=== PATIENT | female | born 1990 | race Caucasian/White ===

== ENCOUNTER 2018-12-18 12:29 | Outpatient (CLI) | payer OTHER | END 2018-12-18 23:59 | disposition home or self-care (01) | LOC: LAB.R 12:29 | PROVIDERS: ATTEND Nurse Practitioner Obstetrics & Gynecology | DX: A56.02 Chlamydial vulvovaginitis (principal) | CPT/HCPCS: 87491; 87591 ==

== ENCOUNTER 2019-01-06 11:02 | Outpatient (CLI) | payer OTHER ==
[2019-01-06 11:09] LABS: MUDS CUTOFF CONCENTRATIONS CUTOFF CONC BELOW:
[2019-01-06 11:31] LABS: AMPHETAMINE SCREEN,URINE NEGATIVE (NEGATIVE); BENZODIAZEPINES SCREEN, URINE NEGATIVE (NEGATIVE); COCAINE SCREEN URINE NEGATIVE (NEGATIVE); METHADONE SCREEN, URINE NEGATIVE (NEGATIVE); METHAMPHETAMINES SCREEN, URINE NEGATIVE (NEGATIVE); OPIATE SCREEN, URINE NEGATIVE (NEGATIVE); OXYCODONE SCREEN, URINE NEGATIVE (NEGATIVE); PROPOXYPHENE SCREEN, URINE NEGATIVE (NEGATIVE); TRICYCLIC ANTIDEPRESSANT,URINE NEGATIVE (NEGATIVE)
[2019-01-06 12:29] LABS: HGB - HEMOGLOBIN 11.7 g/dL (12.0-16.0); MEAN CORPUSCULAR HEMOGLOBIN 28.3 pg (27.0-31.0); MEAN CORPUSCULAR HGB CONC 33.3 g/dL (32.0-36.0); MEAN CORPUSCULAR VOLUME 84.8 fL (81.0-99.0); MEAN PLATELET VOLUME 8.3 fL (7.9-10.8); RED BLOOD COUNT 4.14 10^6/uL (4.20-5.40); RED CELL DISTRIBUTION WIDTH 13.9 % (12.0-15.0); WHITE BLOOD COUNT 9.2 x10^3/uL (4.8-10.8)
== END 2019-01-06 11:03 | disposition home or self-care (01) ==
LOC: LAB 11:02
PROVIDERS: ATTEND Nurse Practitioner Obstetrics & Gynecology
DX: Z34.90 Encounter for supervision of normal pregnancy, unspecified, unspecified trimester (principal); Z36.89 Encounter for other specified antenatal screening
CPT/HCPCS: 36415; 80306; 82950; 85027; 86850

== ENCOUNTER 2019-02-02 11:43 | Outpatient (CLI) | payer OTHER ==
--- NOTE | 2019-02-02 14:25 | Ultrasound Report ---
Reason: UTERINCE SIZE DATE DISCREPANCY, ANTEPARTUM, UNSPEC Procedure Date: 02/02/2019 Accession Number: [id number] / [id number] Procedure: US - OB F/U or Repeat CPT Code: FULL RESULT: EXAM: FOLLOW-UP OBSTETRICAL ULTRASOUND EXAM DATE: 02/02/2019 11:46 AM. CLINICAL HISTORY: Uterine size date discrepancy, antepartum, unspecified. COMPARISON: None. TECHNIQUE: Real-time sonographic evaluation of the fetus performed by the hot dog vendor. Multiple passenger representative static images were saved for review. DATING: Established EGA 32 weeks 3 days with DOLORES 03/27/2019 based on physician assigned dating. EGA 32 weeks 1 day with DOLORES 03/29/2019 based on the current ultrasound. GENERAL EVALUATION Patel . Cardiac activity: 150 bpm. movement: Visualized. Presentation: Variable Placenta: Anterior position. No previa. Amniotic fluid: Mild polyhydramnios ZENON 24.8 cm. MVP 8.5 cm. BIOMETRY Bi-Parietal Diameter (BPD): 7.9 cm, 31 weeks 4 days Head Circumference (HC): 30.4 cm, 33 weeks 5 days Abdominal Circumference (AC): 29.7 cm, 33 weeks 1 day Femur Length (FL): 5.5 cm, 29 weeks 1 day Estimated Weight: 1925 g, 33 percentile for 32 weeks 3 days. ANATOMY Not formally assessed; no abnormalities to visualized structures. MATERNAL STRUCTURES Cervix long and closed 4.4 cm in length. IMPRESSION: 1. Patel live intrauterine with gestational age 32 weeks 3 days based on physician assigned dating. 2. Estimated weight is within expected limits for assigned dating. 3. Mild polyhydramnios of uncertain etiology. Amniotic fluid index 24.8 cm/MVP 8.5 cm. Consider short interval followup to reassess fluid volume and growth. 4. Anterior placenta. No previa. RADIA
== END 2019-02-02 11:44 | disposition home or self-care (01) ==
LOC: DI 11:43
PROVIDERS: ATTEND Nurse Practitioner Obstetrics & Gynecology
DX: O26.849 Uterine size-date discrepancy, unspecified trimester (principal); O40.3XX0 Polyhydramnios, third trimester, not applicable or unspecified; Z3A.32 32 weeks gestation of pregnancy
CPT/HCPCS: 76816

== ENCOUNTER 2019-02-10 17:06 | Outpatient (CLI) | payer OTHER ==
--- NOTE | 2019-02-10 18:15 | Ultrasound Report ---
REVISED: THIS REPORT WAS ORIGINALLY SIGNED ON 02/10/2019 @ 18:17. EXAM CODE REVISED ON 02/19/2019. Reason: POLYHYDRAMNIOS,ANTEPARTUM Procedure Date: 02/10/2019 Accession Number: [id number] / [id number] Procedure: US - OB Bio w/Non Stress CPT Code: FULL RESULT: EXAM: BIOPHYSICAL PROFILE EXAM DATE: 02/10/2019 05:20 PM. CLINICAL HISTORY: POLYHYDRAMNIOS,ANTEPARTUM. COMPARISON: None. TECHNIQUE: Real-time sonographic evaluation of the fetus performed by the elevator examiner. Multiple sales representative consultant static images were saved for review. DATING: Established EGA 33 weeks 4 days with DOLORES 03/27/2019. GENERAL EVALUATION Patel . Cardiac activity: 149 bpm. movement: Visualized. Presentation: Cephalic. Placenta: Anterior position. No evidence for previa or abruption. Amniotic fluid: Normal. ZENON 19.4 cm. MVP 6.8 cm. BIOPHYSICAL PROFILE Breathing = 2 Movement = 2 Tone = 2 Amniotic Fluid = 2 Total 07/01 IMPRESSION: 1. Patel live intrauterine with gestational age 33 weeks 4 days based on established DOLORES. 2. Biophysical profile score 8 of 8. 3. ZENON within normal limits at 19.4. RADIA The call report notification system was initiated by Dr. Manolo Serrano at 06:13 PM on 02/10/2019. MTDD
[2019-02-10 18:41] VITALS: BP 108/64
== END 2019-02-10 19:00 | disposition home or self-care (01) ==
LOC: DI 17:06
PROVIDERS: ATTEND Registered Nurse
DX: O40.3XX0 Polyhydramnios, third trimester, not applicable or unspecified (principal); Z3A.33 33 weeks gestation of pregnancy
CPT/HCPCS: 59025; 76818; 76819

== ENCOUNTER 2019-02-24 07:16 | Outpatient (CLI) | payer OTHER ==
--- NOTE | 2019-02-24 10:01 | Ultrasound Report ---
Reason: POLYHYDRAMNIOS, ANTEPARTUM Procedure Date: 02/24/2019 Accession Number: [id number] / [id number] Procedure: US - OB Biophysical Profile CPT Code: FULL RESULT: EXAM: BIOPHYSICAL PROFILE EXAM DATE: 02/24/2019 07:31 AM. CLINICAL HISTORY: Polyhydramnios, antepartum. COMPARISON: 02/10/2019. TECHNIQUE: Real-time sonographic evaluation of the fetus performed by the pug machine operator. Multiple communications representative static images were saved for review. DATING: Established EGA 35 weeks 4 days with DOLORES 03/27/2019. GENERAL EVALUATION Patel . Cardiac activity: 150 bpm. movement: Visualized. Presentation: Cephalic. Placenta: Anterior position. Amniotic fluid: Normal. ZENON 14.6 cm. MVP 6.2 cm. BIOPHYSICAL PROFILE Breathing = 0 Movement = 2 Tone = 2 Amniotic Fluid = 2 Total 05/01 IMPRESSION: 1. Patel live intrauterine with gestational age 35 weeks 4 days based on 03/27/2019. 2. Biophysical profile score 6 of 8. RADIA The above call report findings were [facility]. Eliud Sood at 08:48 AM on 02/24/2019.
== END 2019-02-24 07:17 | disposition home or self-care (01) ==
LOC: DI 07:16
PROVIDERS: ATTEND Registered Nurse
DX: O40.3XX0 Polyhydramnios, third trimester, not applicable or unspecified (principal); Z3A.35 35 weeks gestation of pregnancy
CPT/HCPCS: 76819

== ENCOUNTER 2019-02-24 10:25 | Outpatient (CLI) | payer OTHER ==
[2019-02-24 12:01] VITALS: BP 115/63
--- NOTE | 2019-02-24 12:49 | DISCHARGE SUMMARY ---
"Discharge Summary Admit Date: 02/24/19 Discharge Date: 02/24/19 Discharging Provider: lise Code Status: Attempt Resuscitation Condition at Discharge: Good Discharge Facility Name: [facility] - DIAGNOSES Admission Diagnoses: BPP 6/8 Discharge Diagnoses with Status of Each Condition: 35 weeks' gestation, polyhydramnios resolved, reactive NST, cat I - HPI History of Present Illness: Gaby is a 28 y/o @ 35w4d who was seen for antepartum surveillance of her previously identified polyhydramnios; her polyhydramnios has resolved w/ consistent ZENON WNL x3, will d/c surveillance for this reason; BPP today was 6/8 w/o identification of breathing movements. She was therefore sent to [facility] for NST. - CONSULTS | PROCEDURES Consultations: none Procedures: NST - HOSPITAL COURSE Hospital Course: Over the course of her evaluation on [facility], NST was reactive & reassuring, cat I. She was not having contraction activity & had no s/sx labor. She had a complaint of intermittent palpitations & was noted to be tachycardic to HR max of 120 on the VS monitor. She was directed to [facility], where she had a scheduled f/u appt, to be seen by myself in clinic. - ALLERGIES Allergies/Adverse Reactions: Allergies Allergy/AdvReac Type Severity Reaction Status Date / Time No Known Drug Allergies Allergy Verified 02/24/19 11:44 - FOLLOW UP Follow Up: for scheduled RTPN appts, earlier PRN - TIME SPENT Time Spent in Discharge (Minutes): 5 (NST interpretation, disposition of pt to be seen in ambulatory clinic by me)"
== END 2019-02-24 11:10 | disposition home or self-care (01) ==
LOC: WFO 10:25 → FBP 10:26 → WFO 11:10
PROVIDERS: ATTEND Registered Nurse
DX: O40.3XX0 Polyhydramnios, third trimester, not applicable or unspecified (principal); Z3A.35 35 weeks gestation of pregnancy; Z36.89 Encounter for other specified antenatal screening
CPT/HCPCS: 59025; 76819; 87491; 87591; 87797

== ENCOUNTER 2019-02-24 12:21 | Outpatient (CLI) | payer OTHER | END 2019-02-24 23:59 | disposition home or self-care (01) | LOC: LAB.R 12:21 | PROVIDERS: ATTEND Registered Nurse | DX: Z36.89 Encounter for other specified antenatal screening (principal) | CPT/HCPCS: 87491; 87591; 87797 ==

== ENCOUNTER 2019-02-24 16:38 | Outpatient (CLI) | payer OTHER | END 2019-02-24 23:59 | disposition home or self-care (01) | LOC: LAB.R 16:38 | PROVIDERS: ATTEND Registered Nurse | DX: Z36.89 Encounter for other specified antenatal screening (principal) | CPT/HCPCS: 87491; 87591 ==

== ENCOUNTER 2019-03-05 12:20 | Outpatient (CLI) | payer OTHER ==
[2019-03-06 13:12] LABS: HEPATITIS C ANTIBODY NON-REACTIVE (NON-REACTIVE)
[2019-03-08 14:53] LABS: HIV AG/AB 4TH GEN NON-REACTIVE (NON-REACTIVE)
== END 2019-03-05 12:21 | disposition home or self-care (01) ==
LOC: LAB 12:20
PROVIDERS: ATTEND Registered Nurse
DX: Z36.89 Encounter for other specified antenatal screening (principal)
CPT/HCPCS: 36415; 81599; 86592; 86803; 87389

== ENCOUNTER 2019-03-26 07:58 | Outpatient (CLI) | payer OTHER ==
[2019-03-26 08:36] VITALS: BP 107/67
--- NOTE | 2019-03-26 14:29 | PROCEDURE REPORT ---
- HPI Diagnosis/Indication for NST: Decreased movement Current EDU 03/26/19 Gestation 40 Weeks and 0 Days 1 Para 0 Vital Signs Temperature 37.0 C 03/26/19 08:30 Heart Rate 120 H 03/26/19 08:30 Respiratory Rate 18 03/26/19 08:30 Blood Pressure 107/67 03/26/19 08:30 O2 Saturation 100 03/26/19 08:30 Temperature 37.0 C 03/26/19 08:30 Heart Rate 120 H 03/26/19 08:30 Respiratory Rate 18 03/26/19 08:30 Blood Pressure 107/67 03/26/19 08:30 O2 Saturation 100 03/26/19 08:30 - NST Procedure NST reactive & reassuring, Cat I - Results and Plan Findings/Impression: NST reactive & reassuring, cat I, strip reviewed Plan: 1. d/c home 2. reviewed warning s/sx, labor s/sx, FKC 3. f/u PRN & as scheduled, pt has emergency contact information
== END 2019-03-26 09:10 | disposition home or self-care (01) ==
LOC: WFO 07:58 → FBP 08:00 → WFO 09:10
PROVIDERS: ATTEND Registered Nurse
DX: O36.8130 Decreased fetal movements, third trimester, not applicable or unspecified (principal); Z3A.40 40 weeks gestation of pregnancy
CPT/HCPCS: 99212

== ENCOUNTER 2019-04-02 13:45 | Inpatient (IN) | payer OTHER ==
[2019-04-02] MEDS ORDERED: ONDANSETRON 4 MG/2 ML VIAL IVP PRN (14:00)
[2019-04-02] MEDS ORDERED: SODIUM CHLORIDE FLUSH 0.9% 10 ML SYRINGE IVP PRN (14:00)
[2019-04-02] MEDS: miSOPROStol 100 MCG TABLET BC SCH ×2 (15:01→19:03)
[2019-04-02 15:05] LABS: BASOPHILS % (AUTO) 0.5 %; EOSINOPHILS % (AUTO) 0.6 %; LYMPHOCYTES # (AUTO) 1.4 10^3/uL (1.5-3.5); LYMPHOCYTES % (AUTO) 18.5 %; MEAN CORPUSCULAR HEMOGLOBIN 25.4 pg (27.0-31.0); MEAN CORPUSCULAR HGB CONC 32.3 g/dL (32.0-36.0); MEAN CORPUSCULAR VOLUME 78.6 fL (81.0-99.0); MEAN PLATELET VOLUME 8.7 fL (7.9-10.8); MONOCYTES # (AUTO) 0.8 10^3/uL (0.0-1.0); MONOCYTES % (AUTO) 10.9 %; NEUTROPHILS # (AUTO) 5.2 10^3/uL (1.5-6.6); NEUTROPHILS % (AUTO) 69.5 %; PLT - PLATELET COUNT 272 10^3/uL (130-450); RED BLOOD COUNT 4.35 10^6/uL (4.20-5.40); RED CELL DISTRIBUTION WIDTH 15.8 % (12.0-15.0); WHITE BLOOD COUNT 7.4 x10^3/uL (4.8-10.8)
[2019-04-02] MEDS: SODIUM CHLORIDE FLUSH 0.9% 10 ML SYRINGE IVP SCH ×2 (15:08→22:17)
[2019-04-03] MEDS: miSOPROStol 100 MCG TABLET BC SCH ×4 (00:07→17:29)
[2019-04-03] MEDS: SODIUM CHLORIDE FLUSH 0.9% 10 ML SYRINGE IVP SCH (06:26)
--- NOTE | 2019-04-03 09:12 | HISTORY & PHYSICAL EXAMINATION ---
Admit History - Visit Reason Visit Reason: Other - : 1 Parity: 0 Premature: 0 Ectopic: 0 : 0 Care: positive: [facility] Risk/History: positive: None Complications This : positive: None Smoking Status: Never smoker - Mother's Labs Mother's Blood Type: positive: O Mother's RH: positive: Positive GBS: positive: Group B Step Negative Rubella Status: positive: Immune Meds/Allgy - Allergies Allergies/Adverse Reactions: Allergies Allergy/AdvReac Type Severity Reaction Status Date / Time No Known Drug Allergies Allergy Verified 02/24/19 11:44 Review of Systems - Constitutional Constitutional: denies: Fever, Chills, Malaise - Eyes Eyes: denies: Blurred vision, Spots in vision, Dipolpia - Cardiovascular Cariovascular: denies: Irregular heart rate, Palpitations, Chest pain, Edema, Lightheadedness - Respiratory Respiratory: denies: Cough, Wheezing, SOB at rest - Gastrointestinal Gastrointestinal: denies: Constipation, Diarrhea, Nausea, Vomiting - Neurological Neurological: denies: Headache - Psychiatric Psychiatric: denies: Depression, Anxiety Physical - Abdominal Exam Vital Signs: Temp Pulse Resp BP Pulse Ox 36.4 C L 79 18 115/72 97 04/03/19 09:03 04/03/19 09:03 04/03/19 09:03 04/03/19 09:03 04/03/19 09:03 Contraction Intensity: positive: Mild Uterine Resting Tone: positive: Soft - Monitoring Heart Rate Baseline: 135 Strip Review: positive: Category I - Presentation Presentation: positive: Vertex - Vaginal Exam Membranes: positive: Membranes intact Dilation (in cm): 3 Effacement (%): 50 Station: positive: -3 Cervical Position: positive: Posterior - Speculum Exam Speculum Exam Performed: positive: No Plan for Labor - Plan For Labor I expect patient to be DC'd or transferred within 96 hours.: Yes Plan for Labor: HPI: 28yo @ 41.0wks gestation by 11.4wk U/S presents for post-dates induction of labor with pre-induction cervical ripening. Upon arrival cervix was 3/50/-3, posterior, vertex with intact membranes. She denies VB or Lof and rep orts +FM. She denies FAN, visual disturbances, RUQ or epigastric pain and edema. She has been a patient of [facility] since 25wks gestation following her transfer of care from [facility]. Her has been complicated by obesity. She experienced significant N/V until early in her third trimester which caused her to have an 11lb weight loss initially. She tested positive for chlamydia in early and her TIFFANIE was negative. Dating criteria: LMP 06/20/2019 - unsure; hx irregular menstruation Initial ultrasound at 11.4wks agrees Serial exams - agree OB Hx: G1: Current. + Chlamydia @ initial visit 09/07/2019 - TIFFANIE negative PMHx: asthma, exzema, ovarian cysts Surgical Hx: none Social Hx: Active duty . Never smoker. No ETOH or IVDA. Regular exercise. - [place]. Family Hx: [place] - sister, Heart attack - father, age 32; Multiple - mother Medications: PNV; Zofran PRN Allergies: NKDA Genetic testing: CT neg; serum integrated screen negative O+, antibody neg H/H 11.7/35.1, PLT 297 Hep B neg Hep C neg HIV non-reactive RPR non-reactive Varicella immune 1 hour GTT 108 GBS NEG Tdap 12/28/2018 Physical Exam: Normocephalic, atraumatic PERRLA Heart RRR w/o M/G/R Lungs CTAB Abdomen gravid, soft and nontender EFW 3400 grams SVE 3/50/-3, posterior, vertex. BOW intact Bilateral LE's no edema Mood is good Assessment: 28yo @ 41.0wks gestation Post-dates Pre-induction cervical ripening with 50mcg Misoprostol BC q 4 hours Obesity GBS negative FHT Category I Plan: Place in observation for -preinduction cervical ripening Pre-induction cervical ripening with 50mcg BC misoprsotol q 4 hours Admit with SROM, active labor, or epidural placement Continuous monitoring Encouraged ambulation and frequent position changes Jacuzzi or nitrous oxide use per patient request - reviewed that these pain management options cannot be used simultaneously. Reviewed plan of care with patient, , and labor RN who are in agreement a nd deny further questions or concerns at this time.
--- NOTE | 2019-04-03 19:11 | PROVIDER PROGRESS NOTE ---
Labor Progress Note - Uterine Monitoring Uterine Monitoring Mode: positive: External toco Contraction Frequency (min/apart): 2-5 Contraction Intensity: positive: Moderate to strong Uterine Resting Tone: positive: Soft - Monitoring Monitor Mode: positive: External ultrasound Heart Rate Baseline: 145 Heart Rate Variability: positive: Moderate (6-25 bmp) Accelerations: positive: Present, 15x15 Decelerations: positive: Early, Intermittent (<50% x20 min) Strip Review: positive: Category I - Vaginal Exam Dilation (in cm): 5 Effacement (%): 80 Station: -1 Cervical Position: Posterior - Labor Progress Note Labor Progress Note/Additional Text: S: Sitting in high fowlers position breathing through contractions. She states she is trying very hard to relax into each contraction but has been feeling very tired secondary to very little rest last night. She intends an unmedicated delivery. She has tried nitrous oxide for pain management and does not feel it has been all that helpful for her. She does feel the [employer] has helped and [facility]. O: BP 114/74, HR 89, T 98.8 FHR baseline 145, moderate variability, + accels, intermittent early decelerations Contractions palpate moderate every 2-5 minutes with soft resting tone SVE 5/80/-1, posterior, vertex AROM 1843 A: 28yo @ 41.1wks gestation by 11.4wk U/S Active labor - s/p 50mcg BC misoprostol x 5 total doses GBS neg P: Admit to [facility] for continued active management Repeat SVE prior to administration of next dose of misoprostol Encouraged ambulation and frequent position changes Epidural per maternal request- reviewed and discussed epidural as a tool for relaxation and to promote maternal rest/conservation of energy for pushing stage. Reviewed plan of care with patient, , and labor and information delivery analyst who are in agreement with above plan and deny further questions or concerns at this time.
[2019-04-03] MEDS ORDERED: LIDOCAINE-MPF 1% 30 ML VIAL ONE (20:26)
--- NOTE | 2019-04-03 23:17 | ANESTHESIA ---
Pre-Anesthesia VS, & Labs - Diagnosis active labor - Procedure labor epidural Vital Signs: Temp Pulse Resp BP Pulse Ox 36.4 C L 79 18 115/72 97 04/03/19 09:03 04/03/19 09:03 04/03/19 09:03 04/03/19 09:03 04/03/19 09:03 Height 5 ft 4 in Weight (kg) 95.708 kg - NPO >8 hours - Is Patient ?: Yes - Lab Results Current Lab Results: Laboratory Tests 04/02/19 14:55: WBC 7.4, RBC 4.35, Hgb 11.0 L, Hct 34.2 L, MCV 78.6 L, MCH 25.4 L, MCHC 32.3, RDW 15.8 H, Plt Count 272, MPV 8.7, Neut # (Auto) 5.2, Lymph # (Auto) 1.4 L, [place] # (Auto) 0.8, Eos # (Auto) 0.0, Baso # (Auto) 0.0, Absolute Nucleated RBC 0.01, Nucleated RBC % 0.1 Fish Bones: 04/02/19 14:55 Home Medications and Allergies Active Medications Lactated Ringer's (Lr) 1,000 mls @ 100 mls/hr IV .Q10H [facility] Misoprostol (Cytotec) 50 mcg BC Q4HR [facility] Last Admin: 04/03/19 17:29 Dose: 50 mcg Ondansetron HCl (Zofran Inj) 4 mg IVP Q4HR PRN PRN Reason: Nausea / Vomiting Sodium Chloride (Normal Saline Flush 0.9%) 10 ml IVP 0100,0900,1700 [facility] Last Admin: 04/03/19 06:26 Dose: 10 ml Sodium Chloride (Normal Saline Flush 0.9%) 10 ml IVP PRN PRN PRN Reason: NEEDED PER PROVIDER ORDERS Allergies/Adverse Reactions: Allergies Allergy/AdvReac Type Severity Reaction Status Date / Time No Known Drug Allergies Allergy Verified 02/24/19 11:44 Anes History & Medical History - Anesthetic History Anesthesia Complications: reports: No previous complications Family history of Anesthesia Complications: Denies Family history of Malignant Hyperthermia: Denies - Medical History Smoking Status: Never smoker - Obstetrical History : 1 Parity: 0 Events: positive: None Complications: positive: None Exam General: Alert, Oriented x3, Cooperative, No acute distress Mouth Openin Fingerbreadth Neck Mobility: Normal Mallampati classification: III Thyromental Distance: 4-6 cm Respiratory: Lungs clear, Normal breath sounds, No respiratory distress, No accessory muscle use Cardiovascular: Regular rate, Normal S1, Normal S2, No murmurs Plan Anesthesia Type: Epidural Consent for Procedure(s) Verified and Reviewed: Yes Code Status: Attempt Resuscitation ASA classification: 2-Mild systemic disease Is this case an emergency?: No
[2019-04-03] MEDS ORDERED: fent/BUPIV 2 MCG/0.125% 250 ML EP ONE (23:50)
[2019-04-04] MEDS ORDERED: LACTATED RINGERS 500 ML IV ONE (00:12)
[2019-04-04] MEDS ORDERED: ePHEDrine 50 MG/ML VIAL IVP PRN (00:12)
[2019-04-04] MEDS ORDERED: NALOXONE 0.4 MG/ML VIAL IVP PRN (00:12)
[2019-04-04] MEDS ORDERED: METOCLOPRAMIDE 10 MG/2 ML VIAL IVP PRN (00:12)
[2019-04-04] MEDS ORDERED: diphenhydrAMINE INJ 50 MG/ML VIAL IVP PRN (00:12)
[2019-04-04] MEDS ORDERED: ONDANSETRON 4 MG/2 ML VIAL IVP PRN (00:12)
[2019-04-04] MEDS ORDERED: fent/BUPIV 2 MCG/0.125% 250 ML EP PRN (00:12)
[2019-04-04] MEDS ORDERED: NALBUPHINE 10 MG/ML AMP IVP PRN (00:12)
[2019-04-04] MEDS ORDERED: OXYTOCIN/SODIUM CHLORIDE 500 ML IV ONE (00:15)
[2019-04-04] MEDS ORDERED: ROPIVACAINE 0.2% PF 20 ML AMPULE ONE ×2 (00:25→02:57)
[2019-04-04] MEDS ORDERED: fentaNYL 100 MCG/2 ML VIAL ONE (02:34)
[2019-04-04] MEDS ORDERED: fentaNYL 100 MCG/2 ML VIAL IVP SCH (03:00)
--- NOTE | 2019-04-04 03:51 | PROVIDER PROGRESS NOTE ---
Labor Progress Note - Uterine Monitoring Uterine Monitoring Mode: positive: External toco Contraction Frequency (min/apart): 6-7 Contraction Intensity: positive: Strong Uterine Resting Tone: positive: Soft - Monitoring Monitor Mode: positive: External ultrasound Heart Rate Baseline: 150 Heart Rate Variability: positive: Moderate (6-25 bmp) Accelerations: positive: Absent Decelerations: positive: Late, Recurrent (>50% x20 min) Strip Review: positive: Category II - Vaginal Exam Dilation (in cm): 9 Effacement (%): 100 Station: 0 - Labor Progress Note Labor Progress Note/Additional Text: S: Laying in left side-lying position feeling comfortable with her epidural. She has not been able to rest secondary to difficulty achieving adequate pain control after epidural placement, however she states she does feel comfortable now and is hoping to be able to get a good nap in before she starts pushing. sleeping at the bedside and has remained supportive. O: BP 106/57, HR 87, RR 20, T 36.5 FHR baseline 150s, moderate variability, no accels, recurrent late decels. Overall has been reassuring. Decelerations improved with position changes, fluid bolus, and O2 administration. Contractions palpate strong every 6-7 minutes with soft resting tone. SVE 9/100/0, vertex A: 28yo @ 41.1wks gestation Active labor FHR Category II P: Continuous monitoring Continue assess status and make position changes as necessary Advised pt to attempt to rest. Anticipate spontaneous vaginal delivery May notify dental surgeon physician of status if decelerations persist
[2019-04-04] MEDS ORDERED: LIDOCAINE-MPF 1% 30 ML VIAL ONE (06:26)
[2019-04-04] MEDS: LACTATED RINGERS 1,000 ML IV SCH ×2 (06:28→10:16)
--- NOTE | 2019-04-04 08:56 | PROVIDER PROGRESS NOTE ---
Labor Progress Note - Uterine Monitoring Contraction Frequency (min/apart): Q3-4 min Contraction Intensity: positive: Mild - Monitoring Monitor Mode: positive: Spiral electrode Heart Rate Baseline: 150 Heart Rate Variability: positive: Moderate (6-25 bmp) Accelerations: positive: Present, 15x15 Decelerations: positive: Late Strip Review: positive: Category II - Vaginal Exam Dilation (in cm): 10 Effacement (%): 100 Station: 1 - Labor Progress Note Labor Progress Note/Additional Text: Pt is a 28 yo at 41+1 wga undergoing IOL for postdates Called to facility at approximately 7:00 am to back up CNM for Ms. Cabrera. At that time, she was reported to be 9 cm dilation and showing recurrent decelerations. While en route to the faclity, CNM called a level I for prolonged deceleration. Upon my arrival, deceleration had resolved wht return to moderate variability. FSE is in place. tracing has had periods of Cat I tracing. At current, tracing is Cat II with moderate variabiality and intermittent late appearing decels. Per CNM exam, patient is 10/C/+1 Contractions have spaced out and pitocin was initiated Patient does have epidural in place but pain management is limited Pushing efforts suboptimal and appear to be limited be discomfort Introduced myself to patient in anticipation of VAVD vs LTCS Standing by with OR team and Pediatrics provider Cat II tracing at present Patient will continue to push with CNM
[2019-04-04] MEDS ORDERED: HYDROCORTISONE 1% CREAM 28 GM TUBE PR PRN (09:22)
[2019-04-04] MEDS ORDERED: WITCH HAZEL/GLYCERIN 1 EACH MED..PAD TOP PRN (09:22)
[2019-04-04] MEDS ORDERED: OXYTOCIN/SODIUM CHLORIDE 500 ML IV PRN (09:23)
--- NOTE | 2019-04-04 09:44 | DELIVERY NOTE ---
Delivery Note - Labor Labor: positive: Augmented by ARM, Augmented by oxytocin, Other - Delivery Method Delivery Method: positive: Spontaneous vaginal delivery - Cervical Ripening Method Cervical Ripening Method: positive: Misoprostil - Presentation Presentation: positive: Vertex, MARIAM - right occiput anterior - Nuchal Cord Nuchal Cord: positive: Present, Reduced - Amniotic Fluid Description Amniotic Fluid Description: positive: Clear - Laceration Laceration: positive: None - Delivery Outcome Delivery Outcome: positive: Livebirth - [place] : positive: Placed in direct skin contact with mother, Bulb syringe, Stimulated, Warmed, [place] used [place] sex: positive: Male - Cord Cord: positive: 3 vessels - Placenta Placenta: positive: Intact, Spontaneous - Estimated Blood Loss Estimated Blood Loss (in cc): 200 - Post Delivery Events Post Delivery Events: positive: No post delivery events - Delivery Comments (Free Text/Narrative) Delivery Comments (Free Text/Narrative): This 28yo presented on 04/02/2019 at 1400 for medical induction of labor secondary to postdates . Upon arrival she was noted to be 3/50/-3, vertex. She was given 50mcg BC misoprostol q 4 hours for a total of 5 doses. AROM occurred at 1843 and was noted to be a moderate amount of clear fluid. Epidural placed per maternal request. FHR baseline 150s, moderate variability with recurrent late decelerations noted which improved with position changes, fluid bolus and O2 administration. At 0656 she was noted to have a prolonged, late deceleration to 60bpm with difficulty tracing heart tones. FSE was placed and labor relations teacher physician in addition to operative room staff were notified of need for Category I delivery. At 0702 the fetus recovered from late deceleration and baseline returned to 150bpm. sugar presser physician, ibm websphere portal developer, and operating room crew placed on standby and remained present until delivery. Patient progressed to c/c/+1 at 0703. of viable male occurred at 0910 on 04/04/2019. Nuchal x 1 - reduced. 's 7/9 at 1 and 5 min respectively. The was placed on maternal abdomen, stimulated, dried, and placed skin to skin. Pitocin administered via IV for hemostasis. The umbilical cord was allowed to stop pulsating at which time it was doubly clamped by CNM and cut by FOB. Cord blood was obtained. 3VC. Placenta delivered spontaneously and intact at 0912. EBL 200mL. Uterine fundus firm and there is no excessive bleeding. The perineum, vagina, and cervix were inspected and found to be intact. initiated. Family bonding well. Both mother and baby were left in stable condition.
[2019-04-04] MEDS: ACETAMINOPHEN 500 MG TABLET PO SCH ×2 (10:08→17:58)
[2019-04-04] MEDS: IBUPROFEN 800 MG TABLET PO SCH ×3 (10:09→21:56)
[2019-04-05] MEDS: ACETAMINOPHEN 500 MG TABLET PO SCH ×3 (04:42→18:36)
--- NOTE | 2019-04-05 08:47 | PROVIDER PROGRESS NOTE ---
Subjective - Subjective Subjective: S: Bonding well with baby. without difficulty. Denies pain. Bleeding is minimal. Feels some swelling at her perineum but has been trying to keep ice packs on which helps. They desire to stay today for extra help and will plan to go home tomorrow. supportive at the bedside. O: 104/56, RR 18, T 36.8, HR 80 Heart RRR w/o M/G/R, lungs CTAB, abdomen soft and nontender with fundus firm at U. Bilateral LE's trace edema. A: 28yo -->P1 PPD#1 s/p TSVD of viable male P: Continue routine care and medications today. Plan for discharge home tomorrow. Pt and verbalized understanding and deny further questions or concerns at this time. Objective - Vital Signs/Intake & Output Vital Signs: Vital Signs x48h Temp Pulse Resp 04/05/19 02:00 36.8 C 76 18 Intake & Output: Intake & Output 04/02/19 04/03/19 04/04/19 04/05/19 23:59 23:59 23:59 23:59 Intake Total 1000 3850 350 Output Total 2800 2 Balance 1000 1050 348 - Lab Results Fish Bones: 04/02/19 14:55
[2019-04-05] MEDS: SODIUM CHLORIDE FLUSH 0.9% 10 ML SYRINGE IVP SCH ×7 (10:04→10:39)
[2019-04-05] MEDS: LACTATED RINGERS 1,000 ML IV SCH ×6 (10:04→10:38)
[2019-04-05] MEDS: OXYTOCIN/SODIUM CHLORIDE 500 ML IV SCH ×2 (10:04→10:05)
[2019-04-05] MEDS: miSOPROStol 100 MCG TABLET BC SCH ×9 (10:04→10:39)
[2019-04-05] MEDS: IBUPROFEN 800 MG TABLET PO SCH ×3 (10:05→18:36)
[2019-04-06] MEDS: ACETAMINOPHEN 500 MG TABLET PO SCH (00:28)
[2019-04-06] MEDS: IBUPROFEN 800 MG TABLET PO SCH (00:28)
--- NOTE | 2019-04-06 09:10 | PROVIDER PROGRESS NOTE ---
Subjective - Prog Note Date Prog Note Date: 04/06/19 Prog Note Time: 08:30 - Subjective Pt reports feeling: Worse Subjective: Gaby reports 7-8/10 lumbar back pain; reports epidural placement took 4 attempts & that she was given large boluses that were painful. She reports feeling like she is having a nerve pinched continuously in her low back. More discomfort w/ active movement, particularly sitting up &/or getting out of bed. She is well w/o discomfort or difficulty. She reports minimal lochia rubra. She is voiding w/o difficulty. She is passing flatus & tolerating a regular diet. She is eager to leave the hospital but expresses profound concerns about her back. Objective - Vital Signs/Intake & Output Reviewed Vital Signs: Yes Vital Signs: Vital Signs x48h Temp Pulse Resp BP Pulse Ox 04/06/19 04:31 36.7 C 76 16 129/75 100 Intake & Output: Intake & Output 04/03/19 04/04/19 04/05/19 04/06/19 23:59 23:59 23:59 23:59 Intake Total 3850 350 Output Total 2800 2 Balance 1050 348 - Objective General Appearance: positive: Mild distress, Anxious Eyes Bilateral: positive: Normal inspection, PERRL, EOMI Respiratory: positive: Chest non-tender, No respiratory distress, Breath sounds nml Cardiovascular: positive: Regular rate & rhythm, No murmur, No gallop Abdomen: positive: Non-tender, No distention, Other (FF U-2) Back: positive: Other (lumbar ecchymoses, tender to palpation along lumbar spinous processes & paraspinous musculature) Skin: positive: Color nml, No rash, Warm Extremities: positive: Non-tender, Full ROM, Nml appearance, No pedal edema. negative: Calf tenderness, Saad's sign/cords Neurologic/Psychiatric: positive: Oriented x3, CN's nml (2-12), Motor nml, Sensation nml, Mood/affect nml - Lab Results Fish Bones: 04/02/19 14:55 Assessment/Plan - Problem List (1) (normal spontaneous vaginal delivery) Impression: PPD #2 s/p w/o complication, extreme back pain secondary to repeated epidural attempts & difficult placement Will have anesthesia come evaluate & make recommendation prior to determining pt disposition for the day, reviewed w/ pt.
--- NOTE | 2019-04-06 09:16 | ANESTHESIA POST OP EVALUATION ---
Anesthesia Post Eval - Post Anesthesia Eval CV Function Including HR & BP: positive: Stable Pain Control: positive: Adequate Nausea & Vomiting: positive: Negative Mental Status: positive: Appropriate Anesthesia Complications: positive: Other (complains of some low back pain at epidural area, some mild brusing. Discussed with patient that low back discomfort is common after labor and epidural placement. No neurologic symptoms, denies headache, some mild ecchymosis at L3 area. Instructed her to take her motrin and tylenol (which she has been declining) and let us know if her back pain persists more than two weeks.)
--- NOTE | 2019-04-06 11:51 | Discharge Plan ---
Discharge Plan Disposition: 01 Home, Self Care Condition: Good Diet: Regular Activity Restrictions: pelvic rest x6 weeks Shower Restrictions: No Driving Restrictions: No Weight Bearing: Full Weight Instruction Topics: Breastfeed How To, Vaginal After, Exercises Kegel No Smoking: If you smoke, Please STOP! Call for help. Follow-up with: Hattie Tapia CNM, PAULA [Provider Admit Priv/Credential] -
--- NOTE | 2019-04-06 11:54 | DISCHARGE SUMMARY ---
"Discharge Summary Admit Date: 04/03/19 Discharge Date: 04/06/19 Discharging Provider: KP Code Status: Attempt Resuscitation Condition at Discharge: Good Discharge Facility Name: [facility] - DIAGNOSES Admission Diagnoses: POSTDATES GESTATION Discharge Diagnoses with Status of Each Condition: - HPI History of Present Illness: Gaby Cabrera is a 28 y/o [id number] who presented for misoprostol preinduction cervical ripening for postdates induction of labor. She received misoprostol buccally & progressed to active labor; she received epidural anesthesia that was removed & replaced for a total of four attempts. She received Pitocin augmentation in the 2nd stage. She delivered a viable male vaginally w/o complication. - CONSULTS | PROCEDURES Consultations: obstetrics, anesthesia Procedures: misoprostol cervical ripening epidural placement pitocin augmentation - HOSPITAL COURSE Hospital Course: , Gaby is doing well with the exception of her lumbar back pain, for which she was evaluated by anesthesia. She is ambulating w/ some discomfort & voiding w/o difficulty. She is well w/o difficulty or discomfort. She is passing flatus & tolerating a regular diet. She reports minimal vaginal bleeding. She has excellent social support. She is able to fully articulate pp warning s/sx, including pp depression s/sx, and pp aftercare instructions. She is ready to leave the hospital. - ALLERGIES Allergies/Adverse Reactions: Allergies Allergy/AdvReac Type Severity Reaction Status Date / Time No Known Drug Allergies Allergy Verified 02/24/19 11:44 - MEDICATIONS Home Medications: Ambulatory Orders Medication Instructions Recorded Confirmed Ibuprofen [Motrin] 800 mg PO Q6H tablet 04/06/19 - PHYSICAL EXAM AT DISCHARGE General Appearance: positive: No acute distress, Alert Eyes Bilateral: positive: Normal inspection, PERRL, EOMI Abdomen: positive: Non-tender, No distention, Other (FF U-2) Back: positive: Other (lumbar ecchymoses) Skin: positive: Color nml, No rash, Warm, Dry Extremities: positive: Non-tender, Full ROM, Nml appearance, No pedal edema. negative: Calf tenderness, Saad's sign/cords Neurologic/Psychiatric: positive: Oriented x3, CN's nml (2-12), Motor nml, Sensation nml, Mood/affect nml - LABS Result Diagrams: 04/02/19 14:55 - FOLLOW UP Follow Up: x1 week w/ Hattie Tapia CNM, earlier PRN - TIME SPENT Time Spent in Discharge (Minutes): 30"
[2019-04-06 16:27] VITALS: BP 108/85
--- NOTE | 2019-04-06 16:35 | Labor Flowsheet ---
Labor Flowsheet Datetime Report Generated by CPN: 04/06/2019 16:35 Datetime: 04/06/2019 07:54 VITAL SIGNS NBP Sys/Gladys/Mean (mmHg): 108 : 85 : 90 Pulse: 89 SpO2 (%): 100 LaborFlag: Labor Datetime: 04/04/2019 08:33 MEDICATIONS Pitocin (milliunits): Increased to @ 2 Datetime: 04/04/2019 08:27 Temperature (C): 37.0 Temperature Route: Oral Datetime: 04/04/2019 07:33 Oxygen Amount (LPM): 10 Oxygen Method: Non-Rebreather Datetime: 04/04/2019 07:15 Patient Position/Activity: High Fowlers Comfort Measures: Coaching COMMUNICATION Communication: OR team in house, baby recovered and pt is pushing while CNM supports ant. lip. Datetime: 04/04/2019 07:10 Communication Comments: Dr. Mcsorely on unit at this time, reviewing strip Datetime: 04/04/2019 07:08 Patient Care Comments: Parson removed. 175ml UO Datetime: 04/04/2019 07:03 STAGE 2 Pushing: Coached on Pushing Pushing Position: Pushing with Contractions Pushing Progress: Descent with Pushing Datetime: 04/04/2019 07:00 ASSESSMENT A Monitor Mode: External US Monitor Interventions for FHR: FSE Applied FHR Baseline Rate : 140 FHR Baseline Changes: Bradycardia Variability: Moderate 6-25 bpm Accelerations: 15X15 Decelerations: Prolonged Actions for Decelerations: Oxygen Applied; IV Bolus; Sterile Vaginal Exam Category: Category III Comments: prolonged deceleration to 70's lasting 4 minutes. FSE placed, pt put to right side witho ut resolution, hob lowered without resolution, hob elevated and baby recovered. provider at bedside VAGINAL EXAM Dilatation (cm): 9.5 Exam by: A. Regina CNM Vaginal Exam Comments: anterior lip Datetime: 04/04/2019 06:57 PATIENT CARE IV/Blood Work: IV Bolus Started Datetime: 04/04/2019 06:45 Effacement (%): 90 Station: 0 Vaginal Bleeding: Normal Show Cervix, Consistency: Soft Cervix, Position: Anterior Datetime: 04/04/2019 06:29 UTERINE ACTIVITY Monitor Mode: External Frequency (min): 5-8 Quality: Moderate Pattern: Normal: <= 5 Contractions in 10 Minutes Resting Tone (Palpate): Relaxed Contraction Comments: 90-120 Datetime: 04/04/2019 06:01 Respirations: 18 Datetime: 04/04/2019 05:30 Duration (sec): 60-90 Datetime: 04/04/2019 04:24 Amniotic Fluid Color: Clear Amniotic Fluid Amount: Small Amniotic Fluid Odor: Normal Datetime: 04/04/2019 04:20 Anesthesia Comments: good relief, resting. Datetime: 04/04/2019 04:00 Monitor Interventions for UA: [place] Housing Adjusted Datetime: 04/04/2019 02:53 Epidural Procedure Other: Pump Started Datetime: 04/04/2019 02:45 Epidural Procedure: Test Dose Datetime: 04/04/2019 02:32 Analgesics/Sedatives: Fentanyl (mcg) @ 50 Datetime: 04/04/2019 02:22 Epidural Positioning: Sitting Datetime: 04/04/2019 02:00 PAIN Pain Scale: 9 Pain Presence: Intermittent Pain Type: Contraction Pain Location: Abdomen Pain Goal: 6 Pain Assessment Comments: "hot spot" right lower abdomen Datetime: 04/04/2019 01:45 I/O Interventions: Parson Cath Inserted Datetime: 04/04/2019 00:45 ANESTHESIA Anesthesia Plans: Epidural Anesthesia Level Check: pt moving legs, still has sensation all extremeties and abdomen. Still rat es pain an 8/10 with contractions. Bolus dosing not helping. Repositioned with slight improvement. Datetime: 04/03/2019 23:22 PROCEDURE TIME OUT Procedure Verify: Correct Patient Identity; Correct Patient Position Datetime: 04/03/2019 22:42 Pain Coping: Requesting Pain Medication or Epidural Datetime: 04/03/2019 22:31 Pain Relief Measures: Comfort Measures (Annotations: hands and knees on ball, nitrous) Datetime: 04/03/2019 18:43 Membrane Status: Ruptured Membranes Rupture Method: Artificial Membrane Comments: AROM by A Regina CNM Datetime: 04/03/2019 18:25 Medication Comments: Nitrous oxide TEACHING Instructional Method: Verbal Unit Routine: Medications Pain Management: PRN Medications; Pain Scale/Goals Teaching Comments: Nitrous oxide Datetime: 04/03/2019 17:29 Cervical Ripening Agents: Cytotec @ Datetime: 04/03/2019 17:17 Provider Notified (Name): A Regina CNM Notification Reason: Status Update Datetime: 04/03/2019 09:04 Labor/Induction: Activity Datetime: 04/02/2019 21:57 Vibroacoustic Stim: End of EFM strip. From #[id number] to #[id number] Datetime: 04/02/2019 14:05 Stage of : Labor
== END 2019-04-06 13:30 | disposition home or self-care (01) | DRG 807 ==
LOC: WFO 13:45 → FBP 13:46 → OBSVTOIN 04-03 18:54
PROVIDERS: ADMIT Nurse Practitioner Obstetrics & Gynecology; ATTEND Registered Nurse
PROC: 10907ZC Drainage of Amniotic Fluid, Therapeutic from Products of Conception, Via Natural or Artificial Opening (ICD-10-PCS; 2019-04-03)
PROC: 10E0XZZ Delivery of Products of Conception, External Approach (ICD-10-PCS; principal; 2019-04-04)
DX: O48.0 Post-term pregnancy (principal); Z37.0 Single live birth; O76 Abnormality in fetal heart rate and rhythm complicating labor and delivery; O99.214 Obesity complicating childbirth; O69.9XX0 Labor and delivery complicated by cord complication, unspecified, not applicable or unspecified; O90.89 Other complications of the puerperium, not elsewhere classified; M54.5 Low back pain; Z87.09 Personal history of other diseases of the respiratory system; Z3A.41 41 weeks gestation of pregnancy
CPT/HCPCS: 85025; A9270; G0378; G0379; J7120